=== PATIENT | female | born 1965 | race Caucasian/White ===

== ENCOUNTER → 2017-07-09 | Outpatient (CLI) | payer OTHER ==
[~2017-07-09] MED LIST: DEXILANT60 MG PO; LEVOXYL0.112 MG PO; LIPITOR 10MG10 MG PO; SYNTHROID0.112 MG/T PO; TIROSINT112 MC1 PO; ZOCOR5 MG PO
== END ==
LOC: MC.RAD 10:00
DX: Z12.31 Encounter for screening mammogram for malignant neoplasm of breast (principal)

== ENCOUNTER → 2018-07-08 | Outpatient (CLI) | payer OTHER | LOC: COL.RAD 08:03 | DX: M50.223 Other cervical disc displacement at C6-C7 level (principal); M48.061 Spinal stenosis, lumbar region without neurogenic claudication | CPT/HCPCS: A9585 ==

== ENCOUNTER → 2018-09-02 | Outpatient (CLI) | payer OTHER | LOC: MC.RAD 09-01 14:20 | DX: Z12.31 Encounter for screening mammogram for malignant neoplasm of breast (principal) ==

== ENCOUNTER → 2019-10-03 | Outpatient (CLI) | payer OTHER | LOC: MC.RAD 13:41 | DX: Z12.31 Encounter for screening mammogram for malignant neoplasm of breast (principal) ==

== ENCOUNTER → 2020-07-11 | Outpatient (CLI) | payer OTHER | LOC: COL.RAD 09:34 | DX: R10.11 Right upper quadrant pain (principal) | CPT/HCPCS: A9537; J2805 ==

== ENCOUNTER → 2020-11-01 | Outpatient (CLI) | payer OTHER | LOC: MC.RAD 10:36 | DX: Z12.31 Encounter for screening mammogram for malignant neoplasm of breast (principal) ==